=== PATIENT | male | born 1960 | race Caucasian/White ===

== ENCOUNTER 2017-03-13 11:40 | Inpatient (IN) | payer MEDICAID ==
[~2017-03-13] VITALS: Ht 165.1 cm; Wt 54.0 kg
[2017-03-13] MEDS ORDERED: SODIUM CHLORIDE 0.9% 1,000ML IVBOLUS ONE (13:00)
[2017-03-13] MEDS ORDERED: MORPHINE SULFATE 4 MG/ML, 1ML IVPush PRN (13:00)
[2017-03-13] MEDS ORDERED: ONDANSETRON 2MG/ML, 2ML IVPush ONE (13:00)
[2017-03-13] MEDS ORDERED: ONDANSETRON 2MG/ML, 2ML ONE (13:01)
[2017-03-13] MEDS ORDERED: MORPHINE SULFATE 4 MG/ML, 1ML ONE (13:01)
[2017-03-13 13:31] LABS: ASPARTATE AMINO TRANSFERASE 25 U/L (15-37); BLOOD UREA NITROGEN 26 mg/dL (7-18)
[2017-03-13] MEDS ORDERED: CEFTRIAXONE PMX 2GM/50ML 50 ML IV SCH (14:30)
[2017-03-13 14:31] LABS: HIV 1&2 ANTIBODY SCREEN Nonreactive (Nonreactive); HIV-1 p24 ANTIGEN Nonreactive (Nonreactive)
[2017-03-13] MEDS ORDERED: CEFTRIAXONE PMX 2GM/50ML 50 ML ONE (15:09)
[2017-03-13] MEDS ORDERED: ASPI-650 PO (16:59)
[2017-03-13] MEDS ORDERED: CLINDAMYCIN PMX 300MG/50ML 50 ML IV SCH (17:00)
[2017-03-13] MEDS ORDERED: DIPHENHYDRAMINE 25 MG CAPSULE PO PRN (17:00)
[2017-03-13] MEDS ORDERED: ONDANSETRON 2MG/ML, 2ML IVPush PRN (17:30)
[2017-03-13] MEDS ORDERED: BISACODYL 10 MG SUPP PR PRN (17:30)
[2017-03-13] MEDS ORDERED: morphine SULFATE 10 MG/ML, 1ML IVPush PRN (17:30)
[2017-03-13] MEDS ORDERED: DOCUSATE 100 MG CAPSULE PO PRN (17:30)
[2017-03-13] MEDS ORDERED: POLYETHYLENE GLYCOL 17 GM PACKET PO PRN (17:30)
[2017-03-13] MEDS: SODIUM CHLORIDE 0.9% 1,000 ML IV SCH (18:06)
[2017-03-13] MEDS: HEPARIN 5,000 UNITS/ML, 1ML SQ SCH (18:07)
[2017-03-13] MEDS: LACTOBACILLUS CHEW TABLET PO SCH ×2 (18:07→20:38)
[2017-03-13] MEDS: NICOTINE 14MG/24 HR PATCH.TD24 TD SCH (18:07)
[2017-03-13] MEDS: CLINDAMYCIN PMX 600MG/50ML 50 ML IV SCH (18:12)
[2017-03-13 20:02] VITALS: BP 111/61
[2017-03-13] MEDS: MINERA CRM, 60GM TP SCH (20:38)
[2017-03-13] MEDS: HYDROcodone/APAP 5/325 TABLET PO PRN (20:58)
[2017-03-13] MEDS: DIPHENHYDRAMINE 25 MG CAPSULE PO PRN (21:30)
[2017-03-14] MEDS: SODIUM CHLORIDE 0.9% 1,000 ML IV SCH ×3 (00:46→13:01)
[2017-03-14 01:08] VITALS: BP 116/69
[2017-03-14] MEDS: HEPARIN 5,000 UNITS/ML, 1ML SQ SCH ×3 (01:29→16:22)
[2017-03-14] MEDS: CLINDAMYCIN PMX 600MG/50ML 50 ML IV SCH ×2 (01:29→08:48)
[2017-03-14] MEDS ORDERED: VANCOMYCIN PER PHARMACY MC PRN (03:30)
[2017-03-14] MEDS ORDERED: VANCOMYCIN PMX 1GM/200ML 200 ML IV SCH (04:00)
[2017-03-14] MEDS ORDERED: PHARMACOKINETIC CONSULTATION MC ONE (04:00)
[2017-03-14] MEDS ORDERED: PHARMACOKINETIC MONITORING MC PRN (04:00)
[2017-03-14 05:31] LABS: BLOOD UREA NITROGEN 19 mg/dL (7-18)
[2017-03-14 05:32] LABS: ASPARTATE AMINO TRANSFERASE 37 U/L (15-37)
[2017-03-14 07:32] VITALS: BP 101/62
[2017-03-14] MEDS: LACTOBACILLUS CHEW TABLET PO SCH ×2 (08:33→16:22)
[2017-03-14] MEDS: MINERA CRM, 60GM TP SCH (08:34)
[2017-03-14] MEDS: BETAMETHASONE DIPRO CRM 0.05%, 15GM TP SCH (08:35)
[2017-03-14] MEDS: DIPHENHYDRAMINE 25 MG CAPSULE PO PRN (08:49)
[2017-03-14] MEDS: HYDROcodone/APAP 5/325 TABLET PO PRN (08:49)
[2017-03-14 12:47] VITALS: BP 96/43
[2017-03-14] MEDS: VANCOMYCIN PMX 1GM/200ML 200 ML IV SCH (16:22)
[2017-03-14] MEDS: NICOTINE 14MG/24 HR PATCH.TD24 TD SCH (16:23)
[2017-03-14 19:37] VITALS: BP 107/51
[2017-03-15] MEDS: DIPHENHYDRAMINE 25 MG CAPSULE PO PRN ×2 (00:30→21:04)
[2017-03-15] MEDS: HYDROcodone/APAP 5/325 TABLET PO PRN ×2 (00:30→21:04)
[2017-03-15] MEDS: LACTOBACILLUS CHEW TABLET PO SCH ×4 (00:30→20:59)
[2017-03-15] MEDS: MINERA CRM, 60GM TP SCH ×3 (00:33→21:00)
[2017-03-15 01:29] VITALS: BP 110/68
[2017-03-15] MEDS: HEPARIN 5,000 UNITS/ML, 1ML SQ SCH ×3 (01:30→17:07)
[2017-03-15] MEDS: VANCOMYCIN PMX 1GM/200ML 200 ML IV SCH ×2 (05:44→15:28)
[2017-03-15 07:55] VITALS: BP 133/73
[2017-03-15] MEDS: BETAMETHASONE DIPRO CRM 0.05%, 15GM TP SCH (09:03)
[2017-03-15 12:39] VITALS: BP 109/58
[2017-03-15] MEDS: NICOTINE 14MG/24 HR PATCH.TD24 TD SCH (17:08)
[2017-03-15 19:41] VITALS: BP 125/68
[2017-03-16] MEDS: HEPARIN 5,000 UNITS/ML, 1ML SQ SCH ×3 (01:29→16:28)
[2017-03-16 04:03] VITALS: BP 135/71
[2017-03-16] MEDS: VANCOMYCIN PMX 1GM/200ML 200 ML IV SCH ×2 (04:18→16:28)
[2017-03-16 07:47] VITALS: BP 120/65
[2017-03-16] MEDS: BETAMETHASONE DIPRO CRM 0.05%, 15GM TP SCH (09:58)
[2017-03-16] MEDS: MINERA CRM, 60GM TP SCH ×2 (09:59→20:57)
[2017-03-16] MEDS: LACTOBACILLUS CHEW TABLET PO SCH ×3 (09:59→20:57)
[2017-03-16 12:26] VITALS: BP 112/62
[2017-03-16] MEDS: NICOTINE 14MG/24 HR PATCH.TD24 TD SCH (16:29)
[2017-03-16] MEDS: HYDROcodone/APAP 5/325 TABLET PO PRN ×2 (17:38→21:58)
[2017-03-16 19:42] VITALS: BP 116/78
[2017-03-16] MEDS: DIPHENHYDRAMINE 25 MG CAPSULE PO PRN (21:58)
[2017-03-17 02:31] VITALS: BP 120/67
[2017-03-17] MEDS: HEPARIN 5,000 UNITS/ML, 1ML SQ SCH ×3 (02:44→17:23)
[2017-03-17] MEDS: VANCOMYCIN PMX 1GM/200ML 200 ML IV SCH ×2 (04:03→17:22)
[2017-03-17 08:24] VITALS: BP 132/68
[2017-03-17] MEDS: LACTOBACILLUS CHEW TABLET PO SCH ×3 (08:38→22:33)
[2017-03-17] MEDS: MINERA CRM, 60GM TP SCH ×2 (08:38→22:36)
[2017-03-17] MEDS: BETAMETHASONE DIPRO CRM 0.05%, 15GM TP SCH (08:39)
[2017-03-17] MEDS: DIPHENHYDRAMINE 25 MG CAPSULE PO PRN ×3 (10:17→22:33)
[2017-03-17] MEDS: HYDROcodone/APAP 5/325 TABLET PO PRN ×3 (10:17→22:33)
[2017-03-17 11:56] LABS: TOTAL IRON BINDING CAPACITY 244 mcg/dL (250-450)
[2017-03-17 14:00] VITALS: BP 135/66
[2017-03-17] MEDS: NICOTINE 14MG/24 HR PATCH.TD24 TD SCH (17:22)
[2017-03-17 17:32] VITALS: BP 128/68
[2017-03-17 21:05] VITALS: BP 126/70
[2017-03-18] MEDS: HEPARIN 5,000 UNITS/ML, 1ML SQ SCH ×2 (01:40→09:30)
[2017-03-18 01:41] VITALS: BP 139/73
[2017-03-18] MEDS: VANCOMYCIN PMX 1GM/200ML 200 ML IV SCH (04:19)
[2017-03-18 07:51] VITALS: BP 134/72
[2017-03-18] MEDS ORDERED: ACID1TAB7 PO (08:30)
[2017-03-18] MEDS ORDERED: LEVO500T8 PO (08:30)
[2017-03-18] MEDS ORDERED: PRED20TA PO (08:30)
[2017-03-18] MEDS: BETAMETHASONE DIPRO CRM 0.05%, 15GM TP SCH (09:00)
[2017-03-18] MEDS ORDERED: PNEUMOCOCCAL 23 VACCINE IM-VACC ONE (09:30)
[2017-03-18] MEDS: LACTOBACILLUS CHEW TABLET PO SCH (09:56)
[2017-03-18] MEDS: MINERA CRM, 60GM TP SCH (09:58)
[2017-03-18] MEDS: DIPHENHYDRAMINE 25 MG CAPSULE PO PRN (10:08)
[2017-03-18] MEDS: HYDROcodone/APAP 5/325 TABLET PO PRN ×2 (10:08→14:25)
[2017-03-18 15:07] VITALS: BP 127/72
== END 2017-03-18 16:39 | disposition home or self-care (01) | DRG 872 ==
LOC: ED 13:29 → EDIP 14:13 → 3NE 15:31
PROVIDERS: ADMIT Internal Medicine; ATTEND Internal Medicine
DX: A41.01 Sepsis due to Methicillin susceptible Staphylococcus aureus (principal); E44.0 Moderate protein-calorie malnutrition; L03.114 Cellulitis of left upper limb; L03.113 Cellulitis of right upper limb; Z68.1 Body mass index [BMI] 19.9 or less, adult; L20.9 Atopic dermatitis, unspecified; D64.9 Anemia, unspecified; F17.210 Nicotine dependence, cigarettes, uncomplicated; Z23 Encounter for immunization
CPT/HCPCS: 36415; 80053; 80061; 80202; 80307; 81001; 82728; 82977; 83036; 83540; 83550; 83605; 83735; 84145; 84439; 84443; 85025; 86703; 87040; 87077; 87147; 87150; 87186; 87899; 90732; 96361; 96374; 96375; J0696; J1644; J2405; J3370; G0435; J7030; J7512; Q0163